=== PATIENT | female | born 1975 | race Caucasian/White ===

== ENCOUNTER 2018-08-29 09:27 | Emergency (ER) | payer OTHER ==
--- NOTE | 2018-08-29 10:15 | RAD ---
4 VIEW LEFT KNEE: Date: 08/14/18 INDICATION: Fall with pain. FINDINGS: No fracture or dislocation. There is mild osteophytosis. No significant joint capsular distention. IMPRESSION: 1. No acute osseous abnormality of left knee. 2. Soft tissue swelling of the ventral, infrapatellar soft tissues, which could relate to injury giv en history of fall. Correlate with physical exam. POS: [facility]
[2018-08-29] MEDS ORDERED: Bacitracin Zinc 1 Packet ONE (10:28)
== END 2018-08-29 11:09 | disposition home or self-care (01) ==
LOC: ERS 09:27
DX: S83.005A Unspecified dislocation of left patella, initial encounter (principal); Z79.899 Other long term (current) drug therapy; V19.9XXA Pedal cyclist (driver) (passenger) injured in unspecified traffic accident, initial encounter